=== PATIENT | female | born 1960 | race Caucasian/White ===

== ENCOUNTER 2023-05-06 16:04 | Inpatient (IN) ==
[2023-05-06] MEDS ORDERED: Heparin DRIP 25,000 UNITS BAG 25,000 UNITS/500 ML BAG ONE (17:08)
[2023-05-06] MEDS ORDERED: Heparin 5000 UNITS/ML 1 mL VIAL ONE (17:08)
[2023-05-06 17:12] LABS: Hematocrit 34.3 % (35-45); Hemoglobin 12.2 g/dL (11.5-14.3); Mean Corpuscular Hemoglobin 31.2 pg (27-33); Mean Corpuscular Hgb Conc 35.5 g/dL (31-36); Mean Corpuscular Volume 87.8 fL (80-97); Mean Platelet Volume 8.2 fL (7.5-11.2); Platelet Count 175 10^3/uL (150-450); Red Cell Distribution Width 14.7 % (12-17); White Blood Count 8.5 10^3/uL (3.8-11.8)
[2023-05-06] MEDS: Heparin DRIP 25,000 UNITS BAG 25,000 UNITS/500 ML BAG IV SCH (17:14)
[2023-05-06] MEDS: Heparin 5000 UNITS/ML 1 mL VIAL IV SCH ×2 (17:14→23:35)
[2023-05-06 17:39] LABS: Creatinine, Serum 1.25 mg/dL (0.51-0.95)
[2023-05-06 18:19] LABS: RBC Morphology Normal (Normal)
[2023-05-06 18:20] LABS: ABS Basophils 0.1 10^3/uL (0.0-0.1); ABS Eosinophils 0.1 10^3/uL (0.0-0.5); ABS Lymphocytes 4.7 10^3/uL (1.0-4.8); ABS Monocytes 0.5 10^3/uL (0.0-0.9); ABS Neutrophils 3.1 10^3/uL (1.5-7.6); ABS Nucleated RBC 0.03 10^3/ul; Eosinophil % 0.6 %; Lymphocyte % 55.1 %; Nucleated Red Blood Cells % 0.3 /100 WBC (0.0-0.4)
[2023-05-06 18:33] LABS: High Sensitivity Troponin 1 Hr 7199 pg/mL (<15)
[2023-05-06 20:38] LABS: High Sensitivity Troponin 3 Hr 6287 pg/mL (<15)
[2023-05-07 05:20] LABS: Hematocrit 32.7 % (35-45); Hemoglobin 11.8 g/dL (11.5-14.3); Mean Corpuscular Hemoglobin 31.8 pg (27-33); Mean Corpuscular Hgb Conc 36.2 g/dL (31-36); Mean Corpuscular Volume 87.9 fL (80-97); Mean Platelet Volume 8.2 fL (7.5-11.2); Platelet Count 173 10^3/uL (150-450); Red Blood Count 3.72 10^6/uL (3.63-4.92); Red Cell Distribution Width 14.8 % (12-17); White Blood Count 8.5 10^3/uL (3.8-11.8)
[2023-05-07 05:35] LABS: Calcium 9.1 mg/dL (8.6-10.3); Creatinine, Serum 0.89 mg/dL (0.51-0.95); Magnesium 1.6 mg/dL (1.9-2.7); Potassium 3.3 mmol/L (3.5-5.0); eGFR CKD-EPI 73.7 (>60)
[2023-05-07] MEDS: Heparin 5000 UNITS/ML 1 mL VIAL IV SCH ×2 (05:55→18:10)
[2023-05-07 06:03] LABS: ABS Basophils 0.1 10^3/uL (0.0-0.1); ABS Eosinophils 0.1 10^3/uL (0.0-0.5); ABS Lymphocytes 5.2 10^3/uL (1.0-4.8); ABS Monocytes 0.4 10^3/uL (0.0-0.9); ABS Neutrophils 2.7 10^3/uL (1.5-7.6); ABS Nucleated RBC 0.04 10^3/ul; Eosinophil % 0.8 %; Lymphocyte % 61.5 %; Nucleated Red Blood Cells % 0.4 /100 WBC (0.0-0.4); RBC Morphology Normal (Normal)
[2023-05-07] MEDS ORDERED: Simvastatin 10 mg TAB (NF) PO SCH (09:00)
[2023-05-07] MEDS ORDERED: Potassium Chlor 20 meq TAB.ER PO ONE (09:51)
[2023-05-07] MEDS ORDERED: Magnesium Sulf 4 GM/100 ML IV 4,000 MG/100 ML BAG IVPB ONE (09:51)
[2023-05-07] MEDS: Potassium Chlor 10 meq TAB PO SCH ×2 (10:40→14:06)
[2023-05-07 11:45] LABS: HDL Cholesterol 17.6 mg/dL
[2023-05-07] MEDS: Heparin DRIP 25,000 UNITS BAG 25,000 UNITS/500 ML BAG IV SCH (14:02)
[2023-05-08] MEDS: Heparin DRIP 25,000 UNITS BAG 25,000 UNITS/500 ML BAG IV SCH ×2 (05:47→13:17)
[2023-05-08 06:12] LABS: Hematocrit 35.8 % (35-45); Hemoglobin 12.7 g/dL (11.5-14.3); Mean Corpuscular Hemoglobin 31.6 pg (27-33); Mean Corpuscular Hgb Conc 35.6 g/dL (31-36); Mean Platelet Volume 8.3 fL (7.5-11.2); Platelet Count 175 10^3/uL (150-450); Red Blood Count 4.02 10^6/uL (3.63-4.92); White Blood Count 8.2 10^3/uL (3.8-11.8)
[2023-05-08 06:30] LABS: Calcium 9.2 mg/dL (8.6-10.3); Creatinine, Serum 0.78 mg/dL (0.51-0.95); Magnesium 2.1 mg/dL (1.9-2.7); Potassium 4.2 mmol/L (3.5-5.0); eGFR CKD-EPI 86.4 (>60)
[2023-05-08 07:36] LABS: ABS Basophils 0.1 10^3/uL (0.0-0.1); ABS Eosinophils 0.1 10^3/uL (0.0-0.5); ABS Lymphocytes 5.6 10^3/uL (1.0-4.8); ABS Monocytes 0.5 10^3/uL (0.0-0.9); ABS Neutrophils 1.9 10^3/uL (1.5-7.6); ABS Nucleated RBC 0.04 10^3/ul; Eosinophil % 1.4 %; Lymphocyte % 68.6 %; Nucleated Red Blood Cells % 0.4 /100 WBC (0.0-0.4); RBC Morphology Normal (Normal)
[2023-05-08] MEDS ORDERED: Midazolam 10 mg/10 ml VIAL 1 mg/ml 10 ml VIAL (10 mg) IV SLOW PU ONE (09:08)
[2023-05-08] MEDS ORDERED: fentaNYL 100 mcg/2 ml 50 MCG/ML VIAL IV SLOW PU ONE (09:08)
[2023-05-08] MEDS ORDERED: Midazolam 5 mg/5 ml VIAL 1 mg/ml 5 ml VIAL (5 mg) ONE (10:30)
[2023-05-08] MEDS ORDERED: fentaNYL 100 mcg/2 ml 50 MCG/ML VIAL ONE (10:30)
[2023-05-08] MEDS ORDERED: nitroGLYCERIN DRIP 25,000 MCG/250 ML BTL ONE (10:31)
[2023-05-08] MEDS ORDERED: Heparin 1,000 UNIT/ML 10 ml (10,000 UNITS) CATHLAB/DIALYSIS ONE (10:31)
[2023-05-08] MEDS ORDERED: Lidocaine 1% MPF 5 ML VIAL ONE (10:31)
[2023-05-08] MEDS ORDERED: VERAPAMIL 2.5 MG/ML 2 ML VIAL ** 5 mg/2 ml ONE (10:31)
[2023-05-08] MEDS ORDERED: Iohexol 350 (CONTRAST) 200 ML MDV IV ONE (10:31)
[2023-05-08] MEDS ORDERED: Heparin 2 UNITS/ML 1000 mls 2,000 ML IV ONE (10:31)
[2023-05-08] MEDS ORDERED: Atropine 0.1 MG/ML 10 ml SYR (1 mg) ONE ×3 (11:23→13:08)
[2023-05-08] MEDS ORDERED: Bivalirudin 250 MG VIAL ONE (11:37)
[2023-05-08] MEDS ORDERED: Eptifibatide IV (Load dose) 2 MG/ML 10 ml VIAL ONE ×2 (12:36→12:48)
[2023-05-08] MEDS ORDERED: NS 0.9% 1000 ml BAG 1,000 ML IV SCH (13:00)
[2023-05-08] MEDS: Heparin 5000 UNITS/ML 1 mL VIAL IV SCH (20:15)
[2023-05-09] MEDS: Heparin 5000 UNITS/ML 1 mL VIAL IV SCH (03:14)
[2023-05-09 04:49] LABS: Hematocrit 32.1 % (35-45); Hemoglobin 11.6 g/dL (11.5-14.3); Mean Corpuscular Hgb Conc 36.1 g/dL (31-36); Mean Corpuscular Volume 88.8 fL (80-97); Mean Platelet Volume 8.3 fL (7.5-11.2); Platelet Count 187 10^3/uL (150-450); Red Blood Count 3.61 10^6/uL (3.63-4.92); Red Cell Distribution Width 14.8 % (12-17); White Blood Count 7.5 10^3/uL (3.8-11.8)
[2023-05-09 05:04] LABS: Calcium 8.1 mg/dL (8.6-10.3); Magnesium 1.9 mg/dL (1.9-2.7); Potassium 3.9 mmol/L (3.5-5.0)
[2023-05-09 05:09] LABS: Creatinine, Serum 0.73 mg/dL (0.51-0.95); eGFR CKD-EPI 93.5 (>60)
[2023-05-09 05:45] LABS: RBC Morphology Normal (Normal)
[2023-05-09 05:47] LABS: ABS Basophils 0.1 10^3/uL (0.0-0.1); ABS Eosinophils 0.1 10^3/uL (0.0-0.5); ABS Lymphocytes 4.7 10^3/uL (1.0-4.8); ABS Monocytes 0.5 10^3/uL (0.0-0.9); ABS Neutrophils 2.1 10^3/uL (1.5-7.6); ABS Nucleated RBC 0.03 10^3/ul; Eosinophil % 1.5 %; Lymphocyte % 62.6 %; Nucleated Red Blood Cells % 0.4 /100 WBC (0.0-0.4)
[2023-05-09] MEDS: Heparin DRIP 25,000 UNITS BAG 25,000 UNITS/500 ML BAG IV SCH (07:36)
[2023-05-09 10:31] VITALS: BP 94/55
== END 2023-05-09 10:30 | disposition home or self-care (01) | DRG 174 ==
LOC: EDHOLD 16:04 → ED 16:04 → SUATTDRO 16:57 → OBSVTOIN 16:57 → EDHOLD 21:55 → MEDTELE 22:22 → ICU 05-08 12:52
PROVIDERS: ADMIT Internal Medicine; ATTEND Student in an Organized Health Care Education/Training Program